=== PATIENT | female | born 1980 | race Hispanic/Latino ===

== ENCOUNTER 2018-12-01 00:45 | Emergency (ER) | payer BC ==
[2018-12-01] MEDS ORDERED: Ketorolac Tromethamine 30 MG/ML VIAL ONE (01:28)
[2018-12-01] MEDS ORDERED: Ondansetron PF 4 MG/2 ML Vial ONE (01:28)
[2018-12-01 01:44] LABS: #Basophils 0.1 thou/uL (0.0-0.2); #Eosinphils 0.1 thou/uL (0.0-0.7); #Lymphocytes 1.9 thou/uL (1.20-3.40); #Monocytes 0.6 thou/uL (0.11-0.59); #Neutrophils 8.2 thou/uL (1.40-6.50); %Basophils 0.5 % (0.0-1.0); %Eosinophils 0.5 % (0.0-10.0); %Lymphocytes 17.6 % (21.0-51.0); %Monocytes 5.2 % (0.0-10.0); %Neutrophils 76.1 % (42.0-75.0); Hemoglobin 14.2 g/dL (12.0-16.0); Mean Corpuscular HGB CONC 32.3 g/dL (32.0-36.0); Mean Corpuscular Hemoglobin 27.9 pg (27.0-31.0); Mean Corpuscular Volume 86.5 fL (78.0-98.0); Mean Platelet Volume 8.9 fL (7.4-10.4); Platelet Count 248 thou/uL (130-400); RBC Distribution Width 14.1 % (11.5-14.5); Red Blood Cell (RBC) Count 5.08 mill/uL (4.20-5.40); White Blood Cell (WBC) Count 10.8 thou/uL (4.8-10.8)
[2018-12-01 02:04] LABS: ALT (SGPT) 19 U/L (8-55); AST (SGOT) 20 U/L (5-34); Albumin 4.4 g/dL (3.5-5.0); Alkaline Phosphatase 98 U/L (40-150); Anion Gap 17 mmol/L (10-20); BUN (Urea Nitrogen) 10 mg/dL (7.0-18.7); Bilirubin, Total 1.1 mg/dL (0.2-1.2); Calc. Creatinine Clearance 0 mL/min (70-130); Calcium 9.9 mg/dL (7.8-10.44); Carbon Dioxide 21 mmol/L (22-29); Chloride 104 mmol/L (98-107); Estimated GFR-MDRD 65; Globulin 3.5 g/dL (2.4-3.5); Glucose 143 mg/dL (70-105); Potassium 3.2 mmol/L (3.5-5.1); Protein, Total 7.9 g/dL (6.0-8.3); Sodium 139 mmol/L (136-145)
[2018-12-01] MEDS ORDERED: Morphine 4 MG/ML VIAL ONE (02:38)
[2018-12-01] MEDS ORDERED: Promethazine HCl 25 MG/ML VIAL ONE (02:39)
[2018-12-01 04:07] LABS: Bilirubin Negative (Negative); Blood, Urine Large (Negative); Clarity CLOUDY (Clear); Glucose, Urine (Dipstick) Negative (Negative); Leukocyte Negative (Negative); Nitrite Negative (Negative); Protein, Urine (Dipstick) Trace mg/dL (Neg-Trace); Specific Gravity, Urine 1.014 (1.002-1.036)
[2018-12-01 04:09] LABS: Bacteria/HPF 1+ HPF (None Seen); Hyaline Casts/LPF 0-3 HYALINE CAST LPF (0-3 Hyaline); RBC/HPF GREATER THAN 50-TNTC HPF (0-3)
--- NOTE | 2018-12-01 08:37 | CT ---
PRELIMINARY REPORT/[facility]/EMERGENCY AFTER HOURS PROCEDURE: EXAM: CT Abdomen and Pelvis Without Contrast EXAM DATE/TIME: 12/01/2018 1:49 AM CLINICAL HISTORY: 38 years old, female; Pain; Abdominal pain; Flank; Left; Patient HX: 38/f who presents to the ed with C/O left flank and left lower abdominal pain. PT states it started this evening. PT endorses HX of k idney stones and reports this feels similar in nature. PT denies nvd. PT reports having difficulty ur inating. TECHNIQUE: Axial computed tomography images of the abdomen and pelvis without contrast. Coronal reformatted imag es were created and reviewed. COMPARISON: No relevant prior studies available. FINDINGS: Lower thorax: There is subpleural atelectasis of the dependent portions of the lungs. A small hiatal hernia is present. ABDOMEN: Liver: There is a diffuse decrease in hepatic parenchymal density, consistent with fatty infiltration . Gallbladder and bile ducts: The gallbladder is normal. There is no evidence of biliary ductal dilatio n. Pancreas: The pancreas appears normal. No ductal dilatation. Spleen: The spleen is normal. Adrenals: The adrenal glands are normal. Kidneys and ureters: The right kidney is normal. There is a 3 x 3 x 5 mm distal LEFT ureteral obstruc ting calculus with associated mild LEFT hydroureteronephrosis and perinephric stranding. Stomach and bowel: The stomach is normal. The duodenum is unremarkable. The colon is normal. Appendix: No evidence of appendicitis. PELVIS: Bladder: The bladder is decompressed but otherwise normal. Reproductive: Uterus is not well-visualized. ABDOMEN and PELVIS: Intraperitoneal space: Normal. No free air. No significant fluid collection. Bones/joints: No acute fracture. No dislocation. Soft tissues: Unremarkable. Vasculature: Normal. No abdominal aortic aneurysm. Lymph nodes: Normal. No enlarged lymph nodes. IMPRESSION: 1. There is a 3 x 3 x 5 mm distal LEFT ureteral obstructing calculus with associated mild LEFT hydrou reteronephrosis and perinephric stranding. 2. Hepatic steatosis. Thank you for allowing us to participate in the care of your patient. Dictated and Authenticated by: Janusz Rubio MD 12/01/2018 3:14 AM Central Time ([place] & [place]) FINAL REPORT CT ABDOMEN AND PELVIS NONCONTRAST: DATE: 12/01/2018. TIME: Performed on an emergency basis at 0150 hours. HISTORY: Left flank pain. COMPARISON: 09/11/2016. FINDINGS: Agree with the preliminary report by Dr. Keyes from [facility]. Partial obstruction at a 5 m m distal left ureteral calculus. Additional tiny nonobstructing bilateral renal calculi. Lack of contrast limits evaluation for other abnormalities. Liver remains diffusely hypodense. POS: [facility]
== END 2018-12-01 04:38 | disposition home or self-care (01) ==
LOC: ERS 00:45
DX: N13.2 Hydronephrosis with renal and ureteral calculous obstruction (principal); N30.01 Acute cystitis with hematuria; E03.9 Hypothyroidism, unspecified; F41.9 Anxiety disorder, unspecified; F32.9 Major depressive disorder, single episode, unspecified; Z79.899 Other long term (current) drug therapy
CPT/HCPCS: 74176; 80053; 81003; 81015; 85025; 96365; 96375; J1885; J2270; J2405; J2550